=== PATIENT | male | born 1945 | race African-American/Black ===

== ENCOUNTER 2022-04-01 13:59 | Emergency (ER) | payer OTHER ==
[2022-04-01] MEDS ORDERED: Ketorolac Tromethamine 30 MG/ML VIAL ONE (15:56)
== END 2022-04-01 17:17 | disposition home or self-care (01) ==
LOC: CSHERS 13:59
DX: M54.12 Radiculopathy, cervical region (principal); M19.09 Primary osteoarthritis, other specified site; E11.9 Type 2 diabetes mellitus without complications; E78.5 Hyperlipidemia, unspecified; I10 Essential (primary) hypertension; F17.200 Nicotine dependence, unspecified, uncomplicated
CPT/HCPCS: 72125; 96372; J1885